=== PATIENT | male | born 1940 | race Caucasian/White ===

== ENCOUNTER 2025-01-22 09:52 | Emergency (ER) | payer OTHER ==
[~2025-01-22] VITALS: Ht 175.2 cm; Wt 97.1 kg
[2025-01-22] MEDS ORDERED: Cyclobenzaprine Hydrochlorid 10 MG TAB PO ONE (10:20)
== END 2025-01-22 13:36 | disposition short-term general hospital (02) ==
LOC: ED 09:52
DX: S12.200A Unspecified displaced fracture of third cervical vertebra, initial encounter for closed fracture (principal); S12.300A Unspecified displaced fracture of fourth cervical vertebra, initial encounter for closed fracture; S12.400A Unspecified displaced fracture of fifth cervical vertebra, initial encounter for closed fracture; S12.500A Unspecified displaced fracture of sixth cervical vertebra, initial encounter for closed fracture; W01.0XXA Fall on same level from slipping, tripping and stumbling without subsequent striking against object, initial encounter; Y93.89 Activity, other specified; Y92.89 Other specified places as the place of occurrence of the external cause; Y99.8 Other external cause status